=== PATIENT | male | born 1980 | race Caucasian/White ===

== ENCOUNTER 2021-03-20 14:34 | Emergency (ER) | payer OTHER ==
[~2021-03-20] VITALS: Ht 188 cm; Wt 95.3 kg
[2021-03-20 15:01] LABS: URINE BILIRUBIN NEGATIVE (Negative); URINE BLOOD NEGATIVE (Negative); URINE CLARITY CLEAR; URINE COLOR YELLOW; URINE GLUCOSE-RANDOM NEGATIVE (Negative); URINE KETONES TRACE (Negative); URINE LEUKOCYTES-REFLEX TRACE (Negative); URINE NITRITE-REFLEX NEGATIVE (Negative); URINE PROTEIN TRACE (Negative); URINE SPECIFIC GRAVITY >= 1.030 (1.005-1.030); URINE UROBILINOGEN 0.2 E.U./dl (0.2-1.0)
[2021-03-20 15:07] LABS: SQUAMOUS 0-3 Few /LPF (0-3)
[2021-03-20 15:08] LABS: CASTS None Seen /LPF (None Seen); CRYSTALS None Seen /LPF (None Seen); URINE RBC 0-2 Rare /HPF (0-2); URINE WBC-REFLEX 6-15 Few /HPF (0-5)
[2021-03-20] MEDS ORDERED: FLEXERIL PO (15:24)
[2021-03-20] MEDS ORDERED: IBUPROFEN 800800 M1 PO (15:24)
[2021-03-20] MEDS ORDERED: CIPRO500 M1 PO (15:24)
[2021-03-20 15:45] VITALS: BP 148/70
== END 2021-03-20 15:46 | disposition home or self-care (01) ==
LOC: M.ERS 14:34
PROVIDERS: Nurse Practitioner Family
DX: S39.012A Strain of muscle, fascia and tendon of lower back, initial encounter (principal); N34.2 Other urethritis; Z98.890 Other specified postprocedural states; X58.XXXA Exposure to other specified factors, initial encounter; Y93.89 Activity, other specified; Y92.89 Other specified places as the place of occurrence of the external cause; Y99.8 Other external cause status

== ENCOUNTER 2021-05-25 18:15 | Emergency (ER) | payer OTHER ==
[~2021-05-25] VITALS: Ht 188 cm; Wt 99.8 kg
[~2021-05-25 18:15] MED LIST: CIPRO500 M1 PO; FLEXERIL PO; IBUPROFEN 800800 M1 PO
[2021-05-25] MEDS ORDERED: MEDROLDOSEPACK PO (18:49)
[2021-05-25] MEDS ORDERED: LIDODERM1 EACH TOP (18:49)
[2021-05-25] MEDS ORDERED: FLEXERIL PO (18:49)
[2021-05-25 18:55] VITALS: BP 141/79
== END 2021-05-25 18:56 | disposition home or self-care (01) ==
LOC: M.ERS 18:15
DX: M54.31 Sciatica, right side (principal)